=== PATIENT | male | born 1995 | race Two or more races ===

== ENCOUNTER 2020-04-11 21:22 | Emergency (ER) | payer MEDICAID ==
[~2020-04-11] VITALS: Ht 170.2 cm; Wt 77.1 kg
[~2020-04-11 21:22] MED LIST: DEXM20CA
[2020-04-11 21:32] VITALS: BP 153/98
[2020-04-11 23:16] LABS: Urine Bacteria NONE SEEN /hpf (None Seen); Urine Blood Negative /uL (Negative); Urine Specific Gravity 1.015 (1.001-1.035); Urine WBC 1 /hpf (0 - 3)
[2020-04-12] MEDS ORDERED: AZITHROMYCIN 250 MG TAB PO ONE
[2020-04-12] MEDS ORDERED: cefTRIAXone SODIUM 250 MG VL IM ONE
[2020-04-12] MEDS ORDERED: LIDOCAINE 1% HCL (LOCAL ANESTH.) INJ 20ML MDV ONE (00:50)
== END 2020-04-12 01:16 | disposition home or self-care (01) ==
LOC: ER 21:25
DX: R30.0 Dysuria (principal); G89.29 Other chronic pain; M54.9 Dorsalgia, unspecified; Z20.2 Contact with and (suspected) exposure to infections with a predominantly sexual mode of transmission; Z88.0 Allergy status to penicillin
CPT/HCPCS: 81001; 96372; 99283; J0696; J2001